=== PATIENT | female | born 1985 | race Caucasian/White ===

== ENCOUNTER 2017-11-24 14:25 | Emergency (ER) | payer OTHER ==
[~2017-11-24] VITALS: Ht 165.1 cm; Wt 84.4 kg
[2017-11-24 14:33] VITALS: Ht 165.1 cm; Wt 84.4 kg
[2017-11-24 18:39] VITALS: BP 120/69
== END 2017-11-24 18:39 | disposition home or self-care (01) ==
LOC: ED 14:25
DX: M94.0 Chondrocostal junction syndrome [Tietze] (principal); Z90.49 Acquired absence of other specified parts of digestive tract
CPT/HCPCS: J1885; Q0092

== ENCOUNTER 2018-01-12 08:09 | Emergency (ER) | payer OTHER ==
[~2018-01-12] VITALS: Ht 165.1 cm; Wt 83.0 kg
[2018-01-12 08:13] VITALS: Ht 165.1 cm; Wt 83.0 kg
[2018-01-12 09:14] LABS: BASOPHIL % 0.4 % (0-2); PLATELET COUNT 228 x10^3mcL (130-400); RED CELL DISTRIBUTION WIDTH 13.9 % (11.5-14.5)
[2018-01-12 09:50] LABS: CALCIUM 8.9 mg/dL (8.5-10.1); CARBON DIOXIDE 25.5 mmol/L (21-32); CHLORIDE SERUM 107 mmol/L (98-107); CREATININE SERUM 0.7 mg/dL (0.6-1.0); GFR1 > 60 mL/min; GLUCOSE SERUM 86 mg/dL (74-106); SODIUM SERUM 139 mmol/L (136-145)
[2018-01-12 09:54] LABS: ALBUMIN 3.7 g/dL (3.4-5.0); ALKALINE PHOSPHATASE 78 U/L (46-116); ALT/SGPT 26 U/L (14-59); AMYLASE 80 U/L (25-115); AST/SGOT 13 U/L (15-37); BILIRUBIN TOTAL 0.31 mg/dL (0.20-1.00); LIPASE 59 IU/L (73-393); TOTAL PROTEIN, SERUM 7.4 g/dL (6.4-8.2)
[2018-01-12 10:13] VITALS: BP 98/67
== END 2018-01-12 10:32 | disposition home or self-care (01) ==
LOC: ED 08:09
PROVIDERS: Specialist
DX: R07.81 Pleurodynia (principal); Z90.49 Acquired absence of other specified parts of digestive tract
CPT/HCPCS: J1885; J3010; J7030; Q0092; Q0162

== ENCOUNTER 2018-05-16 17:41 | Emergency (ER) | payer OTHER ==
[~2018-05-16] VITALS: Ht 162.6 cm; Wt 87.1 kg
[2018-05-16 17:48] VITALS: Ht 162.6 cm; Wt 87.1 kg
[2018-05-16 18:42] LABS: BASOPHIL % 0.6 % (0-2); PLATELET COUNT 258 x10^3mcL (130-400); RED CELL DISTRIBUTION WIDTH 11.7 % (11.5-14.5)
[2018-05-16 18:47] LABS: CALCIUM 9.5 mg/dL (8.5-10.1); CARBON DIOXIDE 27.8 mmol/L (21-32); CHLORIDE SERUM 102 mmol/L (98-107); CREATININE SERUM 0.8 mg/dL (0.6-1.0); GFR1 > 60 mL/min; GLUCOSE SERUM 89 mg/dL (74-106); POTASSIUM SERUM 3.7 mmol/L (3.5-5.1); SODIUM SERUM 139 mmol/L (136-145)
[2018-05-16 18:51] LABS: ALBUMIN 3.9 g/dL (3.4-5.0); ALKALINE PHOSPHATASE 77 U/L (46-116); ALT/SGPT 21 U/L (14-59); AST/SGOT 12 U/L (15-37); BILIRUBIN TOTAL 0.2 mg/dL (0.20-1.00); LIPASE 73 IU/L (73-393); TOTAL PROTEIN, SERUM 7.9 g/dL (6.4-8.2)
[2018-05-16 20:01] VITALS: BP 122/62
== END 2018-05-16 20:01 | disposition home or self-care (01) ==
LOC: ED 17:41
PROVIDERS: Emergency Medicine
DX: N83.202 Unspecified ovarian cyst, left side (principal); N83.201 Unspecified ovarian cyst, right side; R10.31 Right lower quadrant pain; R73.03 Prediabetes; Z90.49 Acquired absence of other specified parts of digestive tract; Z98.890 Other specified postprocedural states
CPT/HCPCS: 36415; J2270

== ENCOUNTER 2019-03-29 05:13 | Emergency (ER) | payer OTHER ==
[~2019-03-29] VITALS: Ht 165.1 cm; Wt 90.8 kg
[2019-03-29 05:17] VITALS: Ht 165.1 cm; Wt 90.8 kg
[2019-03-29 07:11] LABS: UA SPECIFIC GRAVITY >=1.030 (1.005-1.035); microscopic required? YES; urine erythrocyte 2+ (NEGATIVE)
[2019-03-29 07:13] LABS: BASOPHIL % 0.6 % (0-2); PLATELET COUNT 256 x10^3mcL (130-400)
[2019-03-29 09:02] VITALS: BP 124/74
== END 2019-03-29 09:02 | disposition home or self-care (01) ==
LOC: ED 05:13
PROVIDERS: Emergency Medicine
DX: N83.209 Unspecified ovarian cyst, unspecified side (principal)
CPT/HCPCS: 36415; 87491; 87591; J1885

== ENCOUNTER 2019-05-03 13:47 | Emergency (ER) | payer OTHER ==
[~2019-05-03] VITALS: Ht 165.1 cm; Wt 92.5 kg
[2019-05-03 13:51] VITALS: Ht 165.1 cm; Wt 92.5 kg
[2019-05-03 18:25] VITALS: BP 125/60
== END 2019-05-03 18:25 | disposition home or self-care (01) ==
LOC: ED 13:47
DX: M54.6 Pain in thoracic spine (principal); Z87.19 Personal history of other diseases of the digestive system; Z98.890 Other specified postprocedural states

== ENCOUNTER 2019-06-22 22:32 | Emergency (ER) | payer OTHER ==
[~2019-06-22] VITALS: Ht 165.1 cm; Wt 96.7 kg
[2019-06-22 22:44] VITALS: Ht 165.1 cm; Wt 96.7 kg
[2019-06-23 00:11] VITALS: BP 119/81
== END 2019-06-23 00:11 | disposition home or self-care (01) ==
LOC: ED 22:32
DX: M54.9 Dorsalgia, unspecified (principal)

== ENCOUNTER 2020-03-10 02:45 | Emergency (ER) | payer OTHER ==
[~2020-03-10] VITALS: Ht 165.1 cm; Wt 100.2 kg
[2020-03-10 03:03] VITALS: Ht 165.1 cm; Wt 100.2 kg
[2020-03-10 04:36] LABS: BASOPHIL % 0.5 % (0-2); PLATELET COUNT 262 x10^3mcL (130-400); RED CELL DISTRIBUTION WIDTH 12.8 % (11.5-14.5)
[2020-03-10 05:08] LABS: CALCIUM 8.7 mg/dL (8.5-10.1); CARBON DIOXIDE 24.4 mmol/L (21-32); CHLORIDE SERUM 103 mmol/L (98-107); CREATININE SERUM 0.8 mg/dL (0.6-1.0); GFR1 > 60 mL/min; GLUCOSE SERUM 132 mg/dL (74-106); POTASSIUM SERUM 3.5 mmol/L (3.5-5.1); SODIUM SERUM 138 mmol/L (136-145)
[2020-03-10 05:13] LABS: ALBUMIN 3.7 g/dL (3.4-5.0); ALKALINE PHOSPHATASE 84 U/L (46-116); ALT/SGPT 122 U/L (14-59); AST/SGOT 66 U/L (15-37); TOTAL PROTEIN, SERUM 7.4 g/dL (6.4-8.2)
[2020-03-10 06:09] VITALS: BP 105/64
== END 2020-03-10 06:09 | disposition home or self-care (01) ==
LOC: ED 02:45
PROVIDERS: Emergency Medicine
DX: N12 Tubulo-interstitial nephritis, not specified as acute or chronic (principal); N83.202 Unspecified ovarian cyst, left side; G43.909 Migraine, unspecified, not intractable, without status migrainosus; Z98.890 Other specified postprocedural states; Z98.51 Tubal ligation status
CPT/HCPCS: J1885